=== PATIENT | male | born 1970 | race Caucasian/White ===

== ENCOUNTER 2016-09-19 14:58 | Emergency (ER) | payer SELFPAY ==
[~2016-09-19] VITALS: Ht 177.8 cm; Wt 100.0 kg
[~2016-09-19 14:58] MED LIST: IOHEXOL-300 100 ML BOTTLE ONE; SODIUM CHLORIDE 0.9% 10ML VIAL ONE
[2016-09-19] MEDS ORDERED: SODIUM CHLORIDE 0.9% 1,000 ML IV ONE (16:37)
[2016-09-19] MEDS ORDERED: ONDANSETRON HCL 4MG/2ML VIAL IV STA (16:37)
[2016-09-19] MEDS ORDERED: MORPHINE SULFATE 4 MG/ML CPJ (NOT FOR IM USE) IV STA (16:37)
[2016-09-19] MEDS ORDERED: TETANUS, DIPHTHERIA, PERTUSSIS VAC/PF 0.5ML (>7YR OLD) IM ONE (16:45)
[2016-09-19 17:08] LABS: HEMATOCRIT. 44.7 % (42.0-52.0); HEMOGLOBIN. 15.5 g/dL (14.0-18.0); MEAN CORPUSCULAR VOLUME 92.1 fL (80.0-94.0); MEAN PLATELET VOLUME 8.6 fl (7.4-10.4); PLATELET 199 x1000/uL (130-400); RED BLOOD CELL COUNT 4.85 mill/uL (4.7-6.1); RED CELL DISTRIBUTION WIDTH 13.3 % (11.6-14.6)
[2016-09-19 17:24] LABS: CARBON DIOXIDE 30 mEq/L (21-32); CHLORIDE 106 mEq/L (98-107)
[2016-09-19 18:24] LABS: CLARITY URINE CLEAR (CLEAR); COLOR URINE YELLOW (YELLOW); GLUCOSE URINE NEGATIVE (NEGATIVE); KETONES URINE TRACE (NEGATIVE); LEUKOCYTE ESTERASE URINE NEGATIVE (NEGATIVE); NITRITE URINE NEGATIVE (NEGATIVE); OCCULT BLOOD URINE NEGATIVE (NEGATIVE); PROTEIN URINE TRACE (NEGATIVE); SPECIFIC GRAVITY URINE 1.028 (1.005-1.030)
[2016-09-19 18:25] LABS: ATYPICAL LYMPHOCYTES 1; NUCLEATED RED BLOOD CELLS 1 /100 WBC; PLATELET ESTIMATE NORMAL
[2016-09-19 19:08] VITALS: BP 128/79
[2016-09-19] MEDS ORDERED: HYDROCODONE/ACETAMINOPHEN 5/325MG TABLET PO NR (20:15)
== END 2016-09-19 20:24 | disposition home or self-care (01) ==
LOC: ER 16:13
DX: S30.0XXA Contusion of lower back and pelvis, initial encounter (principal); S20.221A Contusion of right back wall of thorax, initial encounter; S50.811A Abrasion of right forearm, initial encounter; W14.XXXA Fall from tree, initial encounter; Y93.89 Activity, other specified; Y92.89 Other specified places as the place of occurrence of the external cause; Y99.8 Other external cause status
CPT/HCPCS: 36415; 70450; 71260; 73030; 74177; 80053; 81001; 85025; 85610; 96361; 96374; 96375; 99285; A4216; J2270; J2405; J7030; Q9967; Z7610; 90715; A4565

== ENCOUNTER 2018-05-26 20:13 | Emergency (ER) | payer MEDICAID ==
[~2018-05-26] VITALS: Ht 177.8 cm; Wt 109.0 kg
[2018-05-26] MEDS ORDERED: ONDANSETRON HCL 4MG/2ML INJ IV STA (23:33)
[2018-05-26] MEDS ORDERED: PANTOPRAZOLE SODIUM 40 MG/VIAL IV STA (23:33)
[2018-05-26] MEDS ORDERED: MORPHINE SULFATE 4 MG/ML CPJ (NOT FOR IM USE) IV STA (23:33)
[2018-05-26] MEDS ORDERED: SODIUM CHLORIDE 0.9% 1,000 ML IV ONE (23:33)
[2018-05-26 23:57] LABS: CLARITY URINE CLEAR (CLEAR); COLOR URINE YELLOW (YELLOW); KETONES URINE NEGATIVE (NEGATIVE); LEUKOCYTE ESTERASE URINE NEGATIVE (NEGATIVE); NITRITE URINE NEGATIVE (NEGATIVE); OCCULT BLOOD URINE NEGATIVE (NEGATIVE); PROTEIN URINE NEGATIVE (NEGATIVE); SPECIFIC GRAVITY URINE 1.035 (1.005-1.030); UROBILINOGEN URINE 0.2 E.U./dL (0.2-1.0)
[2018-05-27 00:27] LABS: CHLORIDE 107 mEq/L (98-107)
[2018-05-27 00:29] LABS: BASOPHILS % 0.6 % (0.0-2.0); EOSINOPHILS % 0.7 % (0.0-5.0); HEMOGLOBIN. 16.1 g/dL (14.0-18.0); LYMPHOCYTES % 30.2 % (20.0-50.0); MEAN CORPUSCULAR VOLUME 94.2 fL (80.0-94.0); MEAN PLATELET VOLUME 8.6 fl (7.4-10.4); MONOCYTES % 10.7 % (2.0-8.0); NEUTROPHILS % 57.8 % (40.0-76.0); PLATELET 213 x1000/uL (130-400); RED BLOOD CELL COUNT 4.89 mill/uL (4.7-6.1); RED CELL DISTRIBUTION WIDTH 12.8 % (11.6-14.6)
[2018-05-27 00:39] LABS: PARTIAL THROMBOPLASTIN TIME 27.7 sec (23.4-31.0); PROTHROMBIN TIME 9.7 sec (9.1-11.1)
[2018-05-27 02:07] VITALS: BP 130/77
== END 2018-05-27 02:16 | disposition home or self-care (01) ==
LOC: ER 20:13
DX: K62.5 Hemorrhage of anus and rectum (principal); R10.13 Epigastric pain
CPT/HCPCS: 36415; 71045; 74176; 80053; 81003; 83690; 85025; 85610; 85730; 93005; 96374; 96375; 99284; C9113; J2270; J2405; J7030; Z7610

== ENCOUNTER 2020-05-17 08:51 | Emergency (ER) | payer MEDICAID ==
[~2020-05-17] VITALS: Ht 177.8 cm; Wt 113.4 kg
[2020-05-17] MEDS ORDERED: IBUPROFEN 600MG TABLET PO ONE (09:15)
[2020-05-17] MEDS ORDERED: LIDOCAINE 5% PATCH TOP SCH (09:15)
[2020-05-17 09:52] LABS: BASOPHILS % 0.6 % (0.0-2.0); EOSINOPHILS % 0.3 % (0.0-5.0); HEMATOCRIT. 44.8 % (42.0-52.0); HEMOGLOBIN. 15.6 g/dL (14.0-18.0); LYMPHOCYTES % 25.5 % (20.0-50.0); MEAN CORPUSCULAR HEMOGLOBIN 32.5 pg (28.0-32.0); MEAN CORPUSCULAR VOLUME 93.1 fL (80.0-94.0); MEAN PLATELET VOLUME 8.7 fl (7.4-10.4); MONOCYTES % 8.9 % (2.0-8.0); NEUTROPHILS % 64.7 % (40.0-76.0); PLATELET 171 x1000/uL (130-400); RED BLOOD CELL COUNT 4.82 mill/uL (4.7-6.1)
[2020-05-17 10:01] LABS: CHLORIDE 105 mEq/L (98-107)
[2020-05-17 10:53] LABS: *AMPHETAMINES SCREEN URINE NEGATIVE (NEGATIVE); *BARBITURATES SCREEN URINE NEGATIVE (NEGATIVE); *BENZODIAZEPINES SCREEN URINE NEGATIVE (NEGATIVE); *COCAINE SCREEN URINE NEGATIVE (NEGATIVE); METHADONE URINE SCREEN NEGATIVE (NEGATIVE); OPIATES URINE SCREEN NEGATIVE (NEGATIVE); PHENCYCLIDINE URINE SCREEN NEGATIVE (NEGATIVE)
[2020-05-17 10:54] LABS: CANNABINOID URINE SCREEN NEGATIVE (NEGATIVE)
[2020-05-17 13:46] VITALS: BP 132/82
== END 2020-05-17 13:50 | disposition home or self-care (01) ==
LOC: ER 08:51
DX: R07.89 Other chest pain (principal); I10 Essential (primary) hypertension; Z87.891 Personal history of nicotine dependence
CPT/HCPCS: 36415; 71045; 80053; 80305; 83880; 84484; 85025; 93005; 99285

== ENCOUNTER 2021-03-12 19:47 | Emergency (ER) | payer MEDICAID, OTHER ==
[~2021-03-12] VITALS: Ht 180.3 cm; Wt 111.0 kg
[2021-03-12 20:26] VITALS: BP 167/96
[2021-03-12 21:57] LABS: BASOPHILS % 0.7 % (0.0-2.0); EOSINOPHILS % 0.6 % (0.0-5.0); HEMATOCRIT. 43.8 % (42.0-52.0); HEMOGLOBIN. 15.4 g/dL (14.0-18.0); LYMPHOCYTES % 31.7 % (20.0-50.0); MEAN CORPUSCULAR VOLUME 93.8 fL (80.0-94.0); MEAN PLATELET VOLUME 8.7 fl (7.4-10.4); MONOCYTES % 9.1 % (2.0-8.0); NEUTROPHILS % 57.9 % (40.0-76.0); PLATELET 207 x1000/uL (130-400); RED BLOOD CELL COUNT 4.67 mill/uL (4.7-6.1); RED CELL DISTRIBUTION WIDTH 12.9 % (11.6-14.6)
[2021-03-12 21:59] LABS: CHLORIDE 105 mEq/L (98-107)
== END 2021-03-13 00:28 | disposition home or self-care (01) ==
LOC: ER 19:47
DX: R07.89 Other chest pain (principal); R51.9 Headache, unspecified; R20.0 Anesthesia of skin; R53.1 Weakness
CPT/HCPCS: 36415; 71045; 80053; 84484; 85025; 93005; 99285

== ENCOUNTER 2021-05-05 04:20 | Emergency (ER) | payer MEDICAID ==
[~2021-05-05] VITALS: Ht 177.8 cm; Wt 95.0 kg
[2021-05-05] MEDS ORDERED: MAGNESIUM/ALUMINUM HYDROXIDE/SIMETHICONE 30ML UDC PO STA (05:12)
[2021-05-05] MEDS ORDERED: VISCOUS LIDOCAINE 2% 15 ML UDC PO STA (05:12)
[2021-05-05] MEDS ORDERED: FAMOTIDINE 20MG TABLET PO ONE (05:15)
[2021-05-05 06:01] LABS: BASOPHILS % 0.6 % (0.0-2.0); EOSINOPHILS % 0.7 % (0.0-5.0); HEMATOCRIT. 46.9 % (42.0-52.0); HEMOGLOBIN. 15.9 g/dL (14.0-18.0); LYMPHOCYTES % 23.3 % (20.0-50.0); MEAN CORPUSCULAR HEMOGLOBIN 31.8 pg (28.0-32.0); MEAN CORPUSCULAR VOLUME 93.8 fL (80.0-94.0); MEAN PLATELET VOLUME 8.9 fl (7.4-10.4); MONOCYTES % 6.9 % (2.0-8.0); NEUTROPHILS % 68.5 % (40.0-76.0); PLATELET 191 x1000/uL (130-400); RED CELL DISTRIBUTION WIDTH 13.2 % (11.6-14.6)
[2021-05-05 06:10] LABS: CHLORIDE 104 mEq/L (98-107)
[2021-05-05 07:20] LABS: PROTHROMBIN TIME 10.4 sec (9.6-11.0)
[2021-05-05] MEDS ORDERED: FAMO-135 MT (07:47)
[2021-05-05 07:55] VITALS: BP 135/79
== END 2021-05-05 07:55 | disposition home or self-care (01) ==
LOC: ER 04:24
DX: K29.70 Gastritis, unspecified, without bleeding (principal); K64.8 Other hemorrhoids; R03.0 Elevated blood-pressure reading, without diagnosis of hypertension
CPT/HCPCS: 36415; 80053; 82270; 85025; 86850; 86900; 99284

== ENCOUNTER 2021-05-14 22:34 | Emergency (ER) | payer MEDICAID, OTHER ==
[~2021-05-14] VITALS: Ht 177.8 cm; Wt 100.0 kg
[~2021-05-14 22:34] MED LIST changes: +FAMO-135 MT; -IOHEXOL-300 100 ML BOTTLE ONE; -SODIUM CHLORIDE 0.9% 10ML VIAL ONE
[2021-05-14 23:35] LABS: BASOPHILS % 0.7 % (0.0-2.0); EOSINOPHILS % 1.2 % (0.0-5.0); HEMATOCRIT. 42.3 % (42.0-52.0); HEMOGLOBIN. 14.7 g/dL (14.0-18.0); LYMPHOCYTES % 33.8 % (20.0-50.0); MEAN CORPUSCULAR HEMOGLOBIN 32.2 pg (28.0-32.0); MEAN CORPUSCULAR VOLUME 92.8 fL (80.0-94.0); MEAN PLATELET VOLUME 8.9 fl (7.4-10.4); MONOCYTES % 9.8 % (2.0-8.0); NEUTROPHILS % 54.5 % (40.0-76.0); PLATELET 179 x1000/uL (130-400); RED BLOOD CELL COUNT 4.56 mill/uL (4.7-6.1); RED CELL DISTRIBUTION WIDTH 12.9 % (11.6-14.6)
[2021-05-14 23:36] LABS: CHLORIDE 102 mEq/L (98-107)
[2021-05-14] MEDS ORDERED: PANTOPRAZOLE SODIUM 40 MG/VIAL IV STA (23:38)
[2021-05-14] MEDS ORDERED: ONDANSETRON HCL 4MG/2ML INJ IV STA (23:38)
[2021-05-14] MEDS ORDERED: MORPHINE SULFATE 4 MG/ML CPJ (NOT FOR IM USE) IV STA (23:38)
[2021-05-14 23:40] LABS: ETHANOL BLOOD < 10 mg/dL
[2021-05-14] MEDS ORDERED: SODIUM CHLORIDE 0.9% 1,000 ML IV ONE (23:45)
[2021-05-15] LABS: PROTHROMBIN TIME 10.7 sec (9.6-11.0)
[2021-05-15 03:43] LABS: CLARITY URINE CLOUDY (CLEAR); COLOR URINE YELLOW (YELLOW); KETONES URINE NEGATIVE (NEGATIVE); LEUKOCYTE ESTERASE URINE NEGATIVE (NEGATIVE); NITRITE URINE NEGATIVE (NEGATIVE); OCCULT BLOOD URINE NEGATIVE (NEGATIVE); PROTEIN URINE NEGATIVE (NEGATIVE); UROBILINOGEN URINE 0.2 E.U./dL (0.2-1.0)
[2021-05-15] MEDS ORDERED: OMEP40CA20 MT (03:45)
[2021-05-15] MEDS ORDERED: FAMO40TA7 MT (03:45)
[2021-05-15 03:53] LABS: *BENZODIAZEPINES SCREEN URINE NEGATIVE (NEGATIVE); *COCAINE SCREEN URINE NEGATIVE (NEGATIVE); CANNABINOID URINE SCREEN NEGATIVE (NEGATIVE); METHADONE URINE SCREEN NEGATIVE (NEGATIVE); OPIATES URINE SCREEN NEGATIVE (NEGATIVE); PHENCYCLIDINE URINE SCREEN NEGATIVE (NEGATIVE)
[2021-05-15 03:54] LABS: *AMPHETAMINES SCREEN URINE NEGATIVE (NEGATIVE); *BARBITURATES SCREEN URINE NEGATIVE (NEGATIVE)
[2021-05-15 05:55] VITALS: BP 131/72
== END 2021-05-15 05:55 | disposition home or self-care (01) ==
LOC: ER 22:34
DX: K64.4 Residual hemorrhoidal skin tags (principal); R10.13 Epigastric pain
CPT/HCPCS: 36415; 74022; 74177; 80053; 80305; 80320; 81003; 83605; 83690; 83880; 84484; 85025; 85379; 85610; 96361; 96374; 96375; 99285; C9113; J2270; J2405; J7030; G0480

== ENCOUNTER 2021-09-03 13:30 | Emergency (ER) | payer OTHER ==
[~2021-09-03] VITALS: Ht 172.7 cm; Wt 82.0 kg
[~2021-09-03 13:30] MED LIST changes: +FAMO40TA7 MT; +OMEP40CA20 MT
[2021-09-03 15:45] LABS: BASOPHILS % 0.6 % (0.0-2.0); EOSINOPHILS % 0.8 % (0.0-5.0); HEMATOCRIT. 46.8 % (42.0-52.0); HEMOGLOBIN. 16.1 g/dL (14.0-18.0); LYMPHOCYTES % 25.7 % (20.0-50.0); MEAN CORPUSCULAR HEMOGLOBIN 32.1 pg (28.0-32.0); MEAN PLATELET VOLUME 8.6 fl (7.4-10.4); MONOCYTES % 8.7 % (2.0-8.0); NEUTROPHILS % 64.2 % (40.0-76.0); PLATELET 219 x1000/uL (130-400); RED BLOOD CELL COUNT 5.03 mill/uL (4.7-6.1); RED CELL DISTRIBUTION WIDTH 13.1 % (11.6-14.6)
[2021-09-03 15:46] LABS: CHLORIDE 105 mEq/L (98-107)
[2021-09-03] MEDS ORDERED: ONDANSETRON HCL 4MG/2ML INJ IV STA (16:21)
[2021-09-03] MEDS ORDERED: MORPHINE SULFATE 4 MG/ML CPJ (NOT FOR IM USE) IV STA (16:21)
[2021-09-03] MEDS ORDERED: SODIUM CHLORIDE 0.9% 1,000 ML IV ONE (16:30)
[2021-09-03] MEDS ORDERED: ASPIRIN 81MG TABLET PO ONE (18:15)
[2021-09-03] MEDS ORDERED: FAMO-135 PO (18:33)
[2021-09-03 18:55] VITALS: BP 138/72
== END 2021-09-03 19:10 | disposition home or self-care (01) ==
LOC: ER 13:30
DX: R07.2 Precordial pain (principal); K76.9 Liver disease, unspecified; K52.9 Noninfective gastroenteritis and colitis, unspecified; K40.90 Unilateral inguinal hernia, without obstruction or gangrene, not specified as recurrent; N20.0 Calculus of kidney
CPT/HCPCS: 36415; 71045; 74176; 80053; 83690; 83880; 84484; 85025; 93005; 96361; 96374; 96375; 99285; J2270; J2405; J7030

== ENCOUNTER 2023-12-09 08:30 | Emergency (ER) | payer SELFPAY ==
[~2023-12-09] VITALS: Ht 177.8 cm; Wt 111.0 kg
[~2023-12-09 08:30] MED LIST changes: +FAMO-135 PO
[2023-12-09 08:35] VITALS: PULSE 90; RESP 16; TEMP 98.3; O2SAT 97
[2023-12-09 09:03] LABS: BASOPHILS % 0.4 % (0.0-2.0); EOSINOPHILS % 0.7 % (0.0-5.0); HEMATOCRIT. 46.1 % (42.0-52.0); HEMOGLOBIN. 15.7 g/dL (14.0-18.0); LYMPHOCYTES % 25.2 % (20.0-50.0); MEAN CORPUSCULAR HEMOGLOBIN 32.8 pg (28.0-32.0); MEAN CORPUSCULAR HGB CONC 34.1 g/dL (31.0-37.0); MEAN CORPUSCULAR VOLUME 96.1 fL (80.0-94.0); MEAN PLATELET VOLUME 8.6 fl (7.4-10.4); MONOCYTES % 7.6 % (2.0-8.0); NEUTROPHILS % 66.1 % (40.0-76.0); PLATELET 201 x1000/uL (130-400); RED CELL DISTRIBUTION WIDTH 12.7 % (11.6-14.6); WHITE BLOOD COUNT 6.8 x1000/uL (4.5-11.0)
[2023-12-09 09:11] LABS: CHLORIDE 100 mEq/L (98-107); POTASSIUM 4.6 mEq/L (3.5-5.1); SODIUM 134 mEq/L (136-145)
[2023-12-09 09:12] LABS: CALCIUM 9.4 mg/dL (8.7-10.4); CARBON DIOXIDE 29 mEq/L (21-32)
[2023-12-09 09:17] LABS: UREA NITROGEN BLOOD 11 mg/dL (9-23)
[2023-12-09 09:18] LABS: TROPONIN I HIGH SENSITIVITY 9 ng/L (3.0-53)
[2023-12-09 09:20] LABS: GLUCOSE 404 mg/dL (70-105)
[2023-12-09] MEDS: METFORMIN HCL 500MG TABLET PO ONE (10:34)
[2023-12-09 11:28] LABS: TROPONIN I HIGH SENSITIVITY 7 ng/L (3.0-53)
[2023-12-09 13:06] VITALS: BP 147/88
[2023-12-09] MEDS ORDERED: METF-414 MT (13:28)
== END 2023-12-09 14:06 | disposition home or self-care (01) ==
LOC: ER 08:30
DX: R07.89 Other chest pain (principal); Z79.899 Other long term (current) drug therapy; R73.9 Hyperglycemia, unspecified
CPT/HCPCS: 36415; 71045; 80048; 82962; 83036; 84484; 85025; 93005; 99285

== ENCOUNTER 2024-01-15 06:49 | Emergency (ER) | payer MEDICAID ==
[~2024-01-15] VITALS: Ht 172.7 cm; Wt 100.0 kg
[~2024-01-15 06:49] MED LIST changes: +METF-414 MT
[2024-01-15 06:53] VITALS: PULSE 80; O2SAT 96
[2024-01-15 06:55] VITALS: BP 142/86; RESP 18; TEMP 98.6; O2SAT 100
[2024-01-15 07:32] LABS: BASOPHILS % 0.5 % (0.0-2.0); EOSINOPHILS % 0.6 % (0.0-5.0); HEMATOCRIT. 40.1 % (42.0-52.0); HEMOGLOBIN. 14.1 g/dL (14.0-18.0); LYMPHOCYTES % 19.6 % (20.0-50.0); MEAN CORPUSCULAR HEMOGLOBIN 33.1 pg (28.0-32.0); MEAN CORPUSCULAR HGB CONC 35.3 g/dL (31.0-37.0); MEAN CORPUSCULAR VOLUME 93.8 fL (80.0-94.0); MEAN PLATELET VOLUME 8.5 fl (7.4-10.4); MONOCYTES % 7.4 % (2.0-8.0); NEUTROPHILS % 71.9 % (40.0-76.0); PLATELET 195 x1000/uL (130-400); RED BLOOD CELL COUNT 4.27 mill/uL (4.7-6.1); RED CELL DISTRIBUTION WIDTH 12.4 % (11.6-14.6); WHITE BLOOD COUNT 7.7 x1000/uL (4.5-11.0)
[2024-01-15 07:40] LABS: CHLORIDE 107 mEq/L (98-107); SODIUM 140 mEq/L (136-145)
[2024-01-15 07:41] LABS: CALCIUM 9.3 mg/dL (8.7-10.4); CARBON DIOXIDE 30 mEq/L (21-32)
[2024-01-15 07:46] LABS: CREATININE 0.8 mg/dL (0.6-1.3); UREA NITROGEN BLOOD 17 mg/dL (9-23)
[2024-01-15 07:47] LABS: TROPONIN I HIGH SENSITIVITY 5 ng/L (3.0-53)
[2024-01-15 07:48] LABS: ALANINE AMINOTRANSFERASE 49 IU/L (10-49); ALBUMIN 4.7 g/dL (3.2-4.8); ASPARTATE AMINOTRANSFERASE 31 IU/L (<34); BILIRUBIN DIRECT 0.3 mg/dL (<=3.0)
[2024-01-15 07:49] LABS: BILIRUBIN TOTAL 0.8 mg/dL (0.1-1.0); PROTEIN TOTAL 7.6 g/dL (6.0-8.3)
[2024-01-15 08:02] LABS: GLUCOSE 110 mg/dL (70-105)
[2024-01-15] MEDS: FAMOTIDINE 20MG TABLET PO SCH (09:33)
[2024-01-15] MEDS: MAGNESIUM/ALUMINUM HYDROXIDE/SIMETHICONE 30ML UDC PO ONE (09:33)
[2024-01-15] MEDS ORDERED: PROT40 MT (11:36)
== END 2024-01-15 11:42 | disposition home or self-care (01) ==
LOC: ER 06:49
DX: R10.13 Epigastric pain (principal); I10 Essential (primary) hypertension; Z79.899 Other long term (current) drug therapy; Z98.890 Other specified postprocedural states
CPT/HCPCS: 36415; 74176; 76705; 80048; 80076; 84484; 85025; 93005; 99284